=== PATIENT | female | born 1955 | race Caucasian/White ===

== ENCOUNTER 2024-07-07 10:32 | Day surgery (SDC) | payer BC, OTHER ==
[2024-07-07] MEDS ORDERED: ONDANSETRON 4 MG/2 ML VIAL ONE (11:12)
[2024-07-07] MEDS ORDERED: LIDOCAINE 1% MPF 5 ML VIAL ONE (11:12)
[2024-07-07] MEDS ORDERED: KETOROLAC 30 MG/ML INJ ONE (11:12)
[2024-07-07] MEDS ORDERED: FENTANYL CITR 100 MCG/2 ML ONE (11:12)
[2024-07-07] MEDS ORDERED: propofoL 200 MG/20 ML VIAL IV ONE (11:12)
[2024-07-07] MEDS ORDERED: MIDAZOLAM HCL 2 MG/2 ML INJ ONE (11:12)
[2024-07-07 11:24] LABS: Absolute Basophils 0.1 K/uL (0-0.5); Absolute Eosinophils 0.2 K/uL (0-0.5); Absolute Lymphocytes (CBC) 2.1 K/uL (0.7-4.9); Absolute Monocytes 0.5 K/uL (0.1-1.3); Basophils % 0.8 % (0-1.3); Eosinophils % 2.2 % (0-4.4); Hematocrit 37.8 % (36.0-45.0); Hemoglobin 12.7 g/dL (12.0-15.0); Lymphocytes % 30.8 % (15.3-44.8); MCH 29.9 pg (27.0-35.0); MCHC 33.7 g/dL (32.0-36.0); MCV 88.6 fL (80-100); MPV 8.5 fL (7.6-11.3); Monocytes % 7.8 % (3.3-12.3); Neutrophils % 58.4 % (41.7-73.7); Platelets 251 thou/uL (152-406); RBC Red Blood Cell Count 4.26 M/uL (3.86-4.86); Red Cell Distribution Width 13.9 % (12.1-15.2)
[2024-07-07] MEDS ORDERED: CEFAZOLIN SODIUM 2 GM/VIAL ONE (11:24)
[2024-07-07] MEDS ORDERED: Ringers Lactate 1,000 ML IV ONE (11:24)
[2024-07-07 11:37] LABS: Anion Gap 8.1 mEq/L (5.0-15.0); Potassium 4.1 mEq/L (3.5-5.1)
[2024-07-07] MEDS ORDERED: LIDOCAINE HCL/EPINEPHRINE 20 ML MDV ONE (13:16)
--- NOTE | 2024-07-07 15:07 | P.OP ---
Preoperative diagnosis: Upper Central Back Infected Cyst Postoperative diagnosis: Upper Central Back Infected Cyst Primary procedure: Wide Local Excision of Upper Central Back Infected Cyst Anesthesia: GETA + Local Estimated blood loss: <5cc Specimen: Cultures, Debridement Tissues Findings: 4cm x 3cm into fascia Complications: None Transferred to: Recovery Room Condition: Good
[2024-07-07] MEDS ORDERED: MEPERIDINE HCL 25 MG/ML SYR ONE (15:15)
[2024-07-07 15:32] VITALS: O2SAT 99
[2024-07-07 16:39] VITALS: BP 122/66; TEMP 97.2
--- NOTE | 2024-07-07 16:54 | EKG ---
Test Date: 2024-07-07 Test Time: 11:05:23 Audit Analyst: JOHN MEASUREMENT RESULTS: Intervals: Rate: 71 NV: 174 QRSD: 78 QT: 400 QTc: 434 [place]: P: 54 NV: 174 QRS: -10 T: 30 INTERPRETIVE STATEMENTS: Normal sinus rhythm Cannot rule out Anterior infarct, age undetermined Abnormal ECG No previous ECG available for comparison Electronically Signed On 07-07-24 16:54:25 CDT by Fazal Spears
--- NOTE | 2024-07-08 00:21 | OP ---
Date of Procedure: 07/07/2024 Surgeon: Bradley Delgado MD, Preoperative Diagnosis: Upper central back infected cyst. Postoperative Diagnosis: Upper central back infected cyst. Procedure Performed: Wide local excision of upper central back infected cyst. Anesthesia: General endotracheal plus local 1% lidocaine with epinephrine. Estimated Blood Loss: Less than 5 cc. Specimen: Culture sent for both aerobic and anaerobic speciation and debridement of tissue. Findings: Approximately 4 cm x 3 cm ellipse down into the fascia. Complications: None. Condition: The patient was transferred to recovery room in good condition. Procedure In Detail: After informed consent was obtained, the patient was brought to the operating r oom, prepped and draped in the usual sterile fashion. After adequate anesthesia was achieved, I made an elliptical incision down to subcutaneous tissues. Electrocautery was used to dissect down circum ferentially. An infected sebaceous cyst was removed in its entirety using electrocautery and sent of f for pathologic examination. The area was irrigated. Hemostasis was achieved with electrocautery. The wound was then packed with Vashe-soaked gauze and a sterile dressing was placed over top. The p atient tolerated the procedure well without incident or complication and transferred to PACU in good condition. All counts were correct at the end of the case. LA/MODL Voice ID: [id number] Report ID: [id number]
== END 2024-07-07 16:35 | disposition home or self-care (01) ==
LOC: OR 10:32
PROVIDERS: ATTEND Surgery
PROC: 0JB70ZZ Excision of Back Subcutaneous Tissue and Fascia, Open Approach (ICD-10-PCS; principal; 2024-07-07 13:00)
DX: L72.0 Epidermal cyst (principal)
CPT/HCPCS: 11404; 93005; 87070; 85025; 80048; 36415; 87205; 88304; 87075; J2704; J2001; J2250; J3010; J2175; J2405; J7120